=== PATIENT | male | born 1965 | race Caucasian/White ===

== ENCOUNTER 2017-12-24 05:50 | Inpatient (IN) | payer OTHER ==
[~2017-12-24] VITALS: Ht 188 cm; Wt 127.0 kg
[2017-12-24] MEDS ORDERED: SODIUM CHLORIDE 0.9% 1,000 ML IV ONE (06:05)
[2017-12-24 06:39] LABS: BASOPHILS % 0.4 % (0.0-2.0); CHLORIDE 108 mEq/L (98-107); EOSINOPHILS % 1.2 % (0.0-5.0); HEMATOCRIT. 39.1 % (42.0-52.0); HEMOGLOBIN. 13.4 g/dL (14.0-18.0); LYMPHOCYTES % 38.2 % (20.0-50.0); MEAN CORPUSCULAR HEMOGLOBIN 30.9 pg (28.0-32.0); MEAN PLATELET VOLUME 9.2 fl (7.4-10.4); MONOCYTES % 6.4 % (2.0-8.0); NEUTROPHILS % 53.8 % (40.0-76.0); PLATELET 238 x1000/uL (130-400); RED BLOOD CELL COUNT 4.35 mill/uL (4.7-6.1); RED CELL DISTRIBUTION WIDTH 13.3 % (11.6-14.6)
[2017-12-24 06:41] LABS: INR 1.1; PARTIAL THROMBOPLASTIN TIME 21.1 sec (23.4-31.0); PROTHROMBIN TIME 11.1 sec (9.4-11.6)
[2017-12-24 07:03] LABS: CLARITY URINE CLEAR (CLEAR); COLOR URINE YELLOW (YELLOW); KETONES URINE TRACE (NEGATIVE); LEUKOCYTE ESTERASE URINE NEGATIVE (NEGATIVE); NITRITE URINE NEGATIVE (NEGATIVE); OCCULT BLOOD URINE NEGATIVE (NEGATIVE); PH URINE 5.5 (4.5-8.0); PROTEIN URINE 1+ (NEGATIVE); SPECIFIC GRAVITY URINE 1.027 (1.005-1.030); UROBILINOGEN URINE 0.2 E.U./dL (0.2-1.0)
[2017-12-24 09:42] LABS: HEMATOCRIT 37.6 % (42.0-52.0); HEMOGLOBIN 12.8 g/dL (14.0-18.0); MEAN CORPUSCULAR HEMOGLOBIN 30.7 pg (28.0-32.0); MEAN CORPUSCULAR VOLUME 90.3 fL (80.0-94.0); PLATELET 267 x1000/uL (130-400); RED BLOOD CELL COUNT 4.16 mill/uL (4.7-6.1); RED CELL DISTRIBUTION WIDTH 13.3 % (11.6-14.6)
[2017-12-24] MEDS ORDERED: ONDANSETRON HCL 4MG/2ML VIAL IV PRN (10:45)
[2017-12-24] MEDS: DEXT 5%/0.45% NACL 1000ML 1,000 ML IV SCH ×2 (11:18→21:29)
[2017-12-24 12:00] VITALS: BP 119/66
[2017-12-24 12:40] VITALS: BP 119/66
[2017-12-24] MEDS ORDERED: METF-516 MT (13:47)
[2017-12-24] MEDS ORDERED: MAGN500C4 MT (13:47)
[2017-12-24] MEDS ORDERED: CHOL100044 GT (13:47)
[2017-12-24] MEDS ORDERED: LEVO125T8 MT (13:47)
[2017-12-24] MEDS ORDERED: AMLO2.5T45 PO (13:47)
[2017-12-24 16:00] VITALS: BP 121/75
[2017-12-24 17:39] LABS: HEMATOCRIT 34.1 % (42.0-52.0); HEMOGLOBIN 11.7 g/dL (14.0-18.0)
[2017-12-24 20:00] VITALS: BP 109/71
[2017-12-24 20:27] VITALS: BP 109/71
[2017-12-24] MEDS: PANTOPRAZOLE SODIUM 40 MG/VIAL IV SCH ×2 (21:29→21:30)
[2017-12-25] MEDS ORDERED: LEVOTHYROXINE SODIUM 125MCG TABLET PO SCH (06:45)
[2017-12-25] MEDS ORDERED: AMLODIPINE 2.5MG TABLET PO SCH (09:00)
== END 2017-12-24 22:08 | disposition short-term general hospital (02) | DRG 378 ==
LOC: ER 05:50 → 5WST 10:35 → ENRESERV 11:03
PROVIDERS: ADMIT Internal Medicine; ATTEND Internal Medicine
DX: K92.2 Gastrointestinal hemorrhage, unspecified (principal); N39.0 Urinary tract infection, site not specified; E87.8 Other disorders of electrolyte and fluid balance, not elsewhere classified; D64.9 Anemia, unspecified; E03.9 Hypothyroidism, unspecified; E66.9 Obesity, unspecified; S01.21XA Laceration without foreign body of nose, initial encounter; S01.81XA Laceration without foreign body of other part of head, initial encounter; R74.0 Nonspecific elevation of levels of transaminase and lactic acid dehydrogenase [LDH]; I10 Essential (primary) hypertension; X58.XXXA Exposure to other specified factors, initial encounter; Y93.89 Activity, other specified; Y92.89 Other specified places as the place of occurrence of the external cause; Y99.8 Other external cause status; Z68.35 Body mass index [BMI] 35.0-35.9, adult; Z88.8 Allergy status to other drugs, medicaments and biological substances
CPT/HCPCS: 36415; 70450; 71045; 72125; 74176; 78278; 80053; 81003; 83036; 83690; 84484; 85014; 85018; 85025; 85027; 85610; 85730; 86850; 86900; 99285; A9560; C9113; J7030

== ENCOUNTER 2020-10-24 00:11 | Emergency (ER) | payer OTHER ==
[~2020-10-24] VITALS: Ht 190.5 cm; Wt 109.0 kg
[~2020-10-24 00:11] MED LIST: AMLO2.5T45 PO; CHOL100044 GT; LEVO125T8 MT; MAGN500C4 MT; METF-818 MT
[2020-10-24] MEDS ORDERED: MORPHINE SULFATE 4 MG/ML CPJ (NOT FOR IM USE) IV STA (00:47)
[2020-10-24] MEDS ORDERED: ONDANSETRON HCL 4MG/2ML INJ IV STA (00:47)
[2020-10-24] MEDS ORDERED: NITROGLYCERIN OINT 1GM/INCH UDPKT TD ONE (01:00)
[2020-10-24] MEDS ORDERED: ASPIRIN 81MG TABLET PO ONE (01:00)
[2020-10-24 02:15] LABS: BASOPHILS % 0.6 % (0.0-2.0); EOSINOPHILS % 2.4 % (0.0-5.0); HEMATOCRIT. 41.6 % (42.0-52.0); HEMOGLOBIN. 13.9 g/dL (14.0-18.0); LYMPHOCYTES % 38.2 % (20.0-50.0); MEAN CORPUSCULAR HEMOGLOBIN 30.1 pg (28.0-32.0); MEAN PLATELET VOLUME 9.6 fl (7.4-10.4); MONOCYTES % 7.5 % (2.0-8.0); NEUTROPHILS % 51.3 % (40.0-76.0); PLATELET 247 x1000/uL (130-400); RED BLOOD CELL COUNT 4.62 mill/uL (4.7-6.1); RED CELL DISTRIBUTION WIDTH 13.1 % (11.6-14.6)
[2020-10-24 02:16] LABS: CHLORIDE 105 mEq/L (98-107)
[2020-10-24] MEDS ORDERED: SODIUM CHLORIDE 0.9% 1,000 ML IV ONE (02:45)
[2020-10-24] MEDS ORDERED: IOHEXOL-300 100 ML BOTTLE ONE (03:22)
[2020-10-24 04:54] VITALS: BP 126/79
== END 2020-10-24 05:27 | disposition short-term general hospital (02) ==
LOC: ER 00:11
DX: R07.89 Other chest pain (principal); I10 Essential (primary) hypertension; Z88.8 Allergy status to other drugs, medicaments and biological substances
CPT/HCPCS: 36415; 71045; 71275; 80053; 83880; 84484; 85025; 85379; 93005; 96360; 99285; J7030; Q9967; Z7610; J2270; J2405